=== PATIENT | female | born 1995 | race Caucasian/White ===

== ENCOUNTER 2018-05-07 04:02 | Inpatient (IN) | payer BC, OTHER ==
[2018-05-07] MEDS ORDERED: PROMETHAZINE 25 MG/ML VIAL IM PRN (04:21)
[2018-05-07] MEDS ORDERED: METHYLERGONOVINE 0.2MG/ML AMP IM PRN (04:21)
[2018-05-07] MEDS ORDERED: MIDAZOLAM HCL 2 MG/2 ML INJ IV PRN (04:21)
[2018-05-07] MEDS ORDERED: BUTORPHANOL 1 MG/ML INJ IV PRN (04:21)
[2018-05-07] MEDS ORDERED: MEPERIDINE HCL 25 MG/0.5 ML IV PRN (04:21)
[2018-05-07] MEDS ORDERED: CARBOPROST TROME 250 MCG/ML IM PRN (04:21)
[2018-05-07] MEDS ORDERED: Ringers Lactate 1,000 ML IV PRN (04:21)
[2018-05-07] MEDS ORDERED: Ringers Lactate 1,000 ML IV SCH (05:00)
[2018-05-07] MEDS ORDERED: OXYTOCIN/LR 20 UNIT/1,000 ML BAG IV SCH ×2 (05:00→12:00)
[2018-05-07 05:13] LABS: RPR Titer ND
[2018-05-07 05:17] LABS: Urine Appearance CLEAR; Urine Bilirubin NEGATIVE (NEG); Urine Blood NEGATIVE (NEG); Urine Color YELLOW; Urine Glucose NEGATIVE (NEG); Urine Protein NEGATIVE (NEG); Urine Specific Gravity 1.015 (1.005-1.030); Urine Urobilinogen 0.2 mg/dL (0.2-1.0)
[2018-05-07 05:17] LABS: Absolute Monocytes 1.1 K/uL (0.1-1.3); Absolute Neutrophil 7.9 K/uL (1.8-8.0); Basophils % 0.4 % (0-1.3); Eosinophils % 0.9 % (0-4.4); Hematocrit 42.7 % (36.0-45.0); MCH 27.9 pg (27.0-35.0); MCV 84.2 fL (80-100); MPV 10.2 fL (7.6-11.3); Monocytes % 8.7 % (3.3-12.3); RBC Red Blood Cell Count 5.07 M/uL (3.86-4.86)
[2018-05-07 05:19] LABS: Urine Microscopic Reflex NO UMIC
[2018-05-07 06:36] VITALS: BMI 33.1
[2018-05-07] MEDS ORDERED: FENTANYL/BUPIVACAINE/NS/PF 200 MCG/100 ML BAG EP PRN (07:54)
[2018-05-07] MEDS ORDERED: BUPIVACAINE 0.25% PF 30 ML VIAL IV ONE (07:54)
[2018-05-07] MEDS ORDERED: FENTANYL CITR 100 MCG/2 ML IV ONE (07:55)
[2018-05-07] MEDS ORDERED: ROPIVACAINE HCL 20 ML ONE (10:38)
--- NOTE | 2018-05-07 10:38 | PN ---
A 23-year-old female, now 1-1/2 to almost 2 cm, 60% effaced, vertex, well applied, -1 almost 0 statio n. Rupture of membranes, clear fluid. FHTs normal, reactive. Anticipate more rapid progress once s he gets to 4 to 5 cm. CARIN/SID Voice ID: [id number] Report ID: [id number]
--- NOTE | 2018-05-07 10:38 | PREOPHP ---
Date of Admission: 05/07/2018 A 23-year-old, 2, para 1, 39 weeks gestation. Rh positive. Immune to Rubella. Negative bet a strep screen. Cervix is possibly 1-1/2, but posterior. Baby is well applied at -1 to almost 0 sta tion. She is ila regularly, but has not really feeling them yet. FHTs are normal and reacti ve. Admission and labor talk given. The cervix is posterior, so it is uncomfortable for the patient to try the rupture of membranes. We will wait and see if cervix comes more anteriorly and then rupt ure of membranes. She knows if the membranes rupture spontaneously, she is to tell the nurses and we will check her at that point. Anticipate delivery sometime later today. CARIN/SID Voice ID: [id number]
[2018-05-07] MEDS ORDERED: ROPIVACAINE HCL 100 ML IV ONE (10:39)
[2018-05-07] MEDS ORDERED: LIDOCAINE 2% INJ, 20 mL 20 ML ONE (11:13)
[2018-05-07] MEDS ORDERED: BISACODYL 10 MG RECTAL SUPP RECT PRN (11:22)
[2018-05-07] MEDS ORDERED: Oxycodone HCl/Acetaminophen 1 TAB TAB PO PRN (11:22)
[2018-05-07] MEDS ORDERED: ACETAMINOPHEN 500 MG TAB PO PRN (11:22)
[2018-05-07] MEDS ORDERED: DOCUSATE NA/SENNA CONC 1 TAB PO PRN (11:22)
[2018-05-07] MEDS ORDERED: DIPHENHYDRAMINE 25 MG TAB/CAP PO PRN (11:22)
[2018-05-07] MEDS: IBUPROFEN 200 MG TAB PO PRN (16:10)
--- NOTE | 2018-05-07 21:29 | OP ---
Surgeon: Heber Smith MD Description Of Procedure: A 23-year-old, 2, para 1, 39 weeks gestation. Stadol IV, Phenerga n IM initially. Requested epidural, but epidural was done late in the second stage, it really was in effective. Spontaneous vaginal delivery. After 10 minutes second stage, 6 pounds 5 ounce male, Apga rs 9 and 9. Small first-degree laceration repaired with 2-0 chromic and local infiltration. Four st itches. Schultze delivery of the placenta, which was inspected and noted to be heavily calcified, bu t otherwise normal. Less than 350 cc blood loss. Rh positive, immune to Rubella. Negative beta str ep screen. Tolerated all procedures well. Final Diagnoses: Term intrauterine and vaginal delivery, epidural anesthesia-ineffective. CARIN/SID Voice ID: [id number] Report ID: [id number]
[2018-05-07 22:19] LABS: RPR (Rapid Plasma Reagin) NON-REACT (NON-REACT)
[2018-05-08] MEDS: Oxycodone HCl/Acetaminophen 1 TAB TAB PO PRN ×3 (03:50→13:30)
[2018-05-08 09:15] VITALS: TEMP 97
[2018-05-08] MEDS: IBUPROFEN 200 MG TAB PO PRN (13:30)
[2018-05-08 14:28] VITALS: BP 161/82
--- NOTE | 2018-05-09 05:36 | DS ---
Date of Discharge: 05/08/2018 Hospital Course: A 23-year-old, 2, para 1, 39 weeks, delivered a 6-pound 5-ounce male infant , 10 minutes second stage, Apgars 9 and 9, first-degree laceration requiring 4 stitches of 2-0 chromi c under local infiltration, had attempted epidural, but it was too late in the labor and it was not e ffective. Schultze delivery of the placenta, which was inspected and noted to be heavily calcified, but otherwise normal. A 350 cc or less blood loss. Beta strep negative, Rh positive, immune to Rube lla. afebrile, ambulating and voiding. Lochia is normal. Will be dismissed later today. To report back to my office in 6 weeks for followup, to report any temperature elevation of 100 deg panda or greater, severe pain, heavy bleeding, or any other type of abnormalities. Dismissed with tra madol for analgesia, although she may elect to take Motrin instead. Has been offered Tdap during the . Again, offered Tdap administration. Final Diagnoses: Term intrauterine at 39 weeks, vaginal delivery. Tdap offered. CARIN/SID Voice ID: [id number] Report ID: [id number]
[2018-05-10 03:05] LABS: HBsAG Nonreactive (Nonreactive)
== END 2018-05-08 15:10 | disposition home or self-care (01) | DRG 775 ==
LOC: 2ND-WC 04:02 → EDSTATUS 11:31
PROVIDERS: ADMIT Specialist; ATTEND Specialist
PROC: 10E0XZZ Delivery of Products of Conception, External Approach (ICD-10-PCS; principal; 2018-05-07)
PROC: 0HQ9XZZ Repair Perineum Skin, External Approach (ICD-10-PCS; 2018-05-07)
PROC: 10907ZC Drainage of Amniotic Fluid, Therapeutic from Products of Conception, Via Natural or Artificial Opening (ICD-10-PCS; 2018-05-07)
DX: O70.0 First degree perineal laceration during delivery (principal); Z3A.39 39 weeks gestation of pregnancy; Z37.0 Single live birth
CPT/HCPCS: 36415; 81003; 85025; 86592; 86850; 86900; 86901; 87340; J0595; J2550; J2590; J2795; J3010

== ENCOUNTER 2020-02-27 07:25 | Day surgery (SDC) | payer BC ==
[2020-02-27] MEDS ORDERED: Ringers Lactate 1,000 ML IV ONE (07:59)
[2020-02-27 08:03] LABS: Specific Gravity 1.015 (1.005-1.030)
[2020-02-27 08:04] LABS: Absolute Lymphocytes (CBC) 2.1 K/uL (0.7-4.9); Basophils % 0.4 % (0-1.3); Lymphocytes % 15.9 % (15.3-44.8); MPV 8.8 fL (7.6-11.3); RBC Red Blood Cell Count 4.79 M/uL (3.86-4.86)
[2020-02-27] MEDS: CIPROFLOXACIN 400mg IV 400 MG/200 ML BAG IV ONE ×2 (08:11→09:30)
[2020-02-27 08:15] LABS: BUN Blood Urea Nitrogen 9 mg/dL (7-18); Bicarbonate 25 mmol/L (21-32); Glucose Level 95 mg/dL (74-106); Sodium Level 139 mmol/L (136-145)
[2020-02-27] MEDS ORDERED: dexAMETHasone 10 MG/ML VIAL ONE (08:21)
[2020-02-27] MEDS ORDERED: ONDANSETRON 4 MG/2 ML VIAL ONE (08:21)
[2020-02-27] MEDS ORDERED: propofoL 200 MG/20 ML VIAL IV ONE (08:21)
[2020-02-27] MEDS ORDERED: FENTANYL CITR 100 MCG/2 ML ONE (08:21)
[2020-02-27] MEDS ORDERED: LIDOCAINE 2% MPF 5 ML VIAL ONE (08:21)
[2020-02-27] MEDS ORDERED: MIDAZOLAM HCL 2 MG/2 ML INJ ONE (08:21)
[2020-02-27] MEDS ORDERED: KETOROLAC 30 MG/ML INJ ONE (10:12)
--- NOTE | 2020-02-27 10:43 | P.BOP ---
Preoperative diagnosis: left breast mastitis, Large complex abscess Postoperative diagnosis: same Primary procedure: 1. Incision and drainage of left breast Large complex abscess [id number] Secondary procedure: 2. Left breast biospy Specimen: bx culture Findings: LArge complex abscess, large amt of pus Anesthesia: General Drain(s): Other (kerlix roll) Transferred to: Recovery Room Condition: Good
[2020-02-27 11:10] VITALS: TEMP 98.2; O2SAT 100
[2020-02-27] MEDS ORDERED: HYDROCODONE/APAP 5/325 MG TAB ONE (11:17)
[2020-02-27 12:05] VITALS: BP 128/64
--- NOTE | 2020-02-27 12:21 | DS ---
Date of Discharge: 02/27/2020 Diagnosis: Left breast mastitis, large complex abscess, mastodynia. Procedures: Incision and drainage of left breast large complex abscess with left breast biopsy. Disposition: Home. Activity: As tolerated. No heavy lifting. Followup: Follow up in my office in 1 week. Call for appointment at [phone]. We are going to add Cipro 500 mg to her antibiotic regimen and Vicodin 5/325 p.r.n. pain and then delmer ine with no refill. Followup: Follow up in my office in 1 week. JULISA/SID Voice ID: [id number] Report ID: [id number]
--- NOTE | 2020-02-27 12:21 | OP ---
Date of Procedure: 02/27/2020 Surgeon: Miguel Hidalgo MD Preoperative Diagnoses: Left breast mastitis, tenderness, erythema, large complex abscess. Postoperative Diagnoses: Left breast mastitis, tenderness, erythema, large complex abscess. Procedures: 1.Incision and drainage of left breast large complex abscess, 10 x 9 x 9 cm. 2.Left breast biopsy. Specimen: Biopsy and culture of the pus. Findings: Large complex abscess with large amount of pus present. Anesthesia: General plus local. Packing: Kerlix roll, wet-to-dry with saline. Indications: This is a case of a 24-year-old patient, came to my office few hours ago with enlargeme nt of the left breast with severe erythema. Patient has been on p.o. antibiotics, not improved. It is very tender, so she was booked emergent to have incision and drainage of left breast complex absce ss with left breast biopsy to rule out inflammatory breast cancer. Patient understood the benefits, alternatives and risks include but not limited to infection, bleeding, damage to adjacent structures, anesthesia complication, recurrence, CO, and even . She also understands this may not relieve any symptoms. She might need more than one surgical intervention. She understands and her u nderstand she will need packing, she has the option of the home health versus the . Since the done this before he claims he can do it and he was fully explained. We understand our ciera n is in an emergency right now with coronavirus exposure, the possible exposure, said she understands that risk too but at same time it is too big and too tender to be done in any other setting. She un derstood, signed a consent. Description Of Procedure: Patient was brought to the operating room, placed in supine position. Ane sthesia was done without complication. The left breast was prepped and draped in sterile fashion. A time-out was called. Local anesthesia was applied, followed by sharp incision of the skin in the pe riareolar region. Immediately, we have a large amount of pus coming from the area. Suction was done . Loculations were exposed. Area was profusely irrigated leaving a large cavity about 10 x 9 x 9 cm . Hemostasis was obtained of that area. Local anesthesia was applied and then breast biopsy was don e under inflammatory breast tissue. This was sent to the pathologist. After that, we packed the are a with large Kerlix roll and with saline and then sterile dressings on top. Patient tolerated the pr ocedure well. Patient was sent to Recovery in stable condition. JULISA/SID Voice ID: [id number] Report ID: [id number]
== END 2020-02-27 12:00 | disposition home or self-care (01) ==
LOC: OR 07:25
PROVIDERS: ATTEND Surgery
PROC: 0H9U0ZZ Drainage of Left Breast, Open Approach (ICD-10-PCS; principal; 2020-02-27 09:00)
DX: N61.1 Abscess of the breast and nipple (principal); N64.4 Mastodynia; K21.9 Gastro-esophageal reflux disease without esophagitis; Z88.2 Allergy status to sulfonamides; Z82.49 Family history of ischemic heart disease and other diseases of the circulatory system
CPT/HCPCS: 87070; 85025; 80048; 36415; 87205; 81025; 88305; 87075; 87077; 87186; 10061; J2704; J2250; J3010; J1100; J7120; J2405; J0744

== ENCOUNTER 2022-10-31 18:28 | Emergency (ER) | payer BC, SELFPAY ==
[2022-10-31] MEDS ORDERED: TETANUS & DIPHTHERIA TOX,ADULT 0.5 ML VIAL ONE ×2 (20:38→20:43)
--- NOTE | 2022-10-31 22:25 | ER ---
Nurse's Notes [facility] Name: Avi Scanlon Age: 27 yrs Sex: Female : 1995 Arrival Date: 10/31/2022 Time: 18:30 Bed 16 Private MD: Diagnosis: Contusion of left thigh, initial encounter Presentation: 10/31 20:10 Chief complaint: Patient states: I fell through my attic. I didn't hit the ground but I kd3 have a nasty scrape on the inside of my left thigh. Coronavirus screen: Vaccine status: Patient reports being unvaccinated. Ebola Screen: No symptoms or risks identified at this time. Initial Sepsis Screen: Does the patient meet any 2 criteria? No. Patient's initial sepsis screen is negative. Does the patient have a suspected source of infection? No. Patient's initial sepsis screen is negative. Risk Assessment: Do you want to hurt yourself or someone else? Patient reports no desire to harm self or others. Onset of symptoms was October 31, 2022. 20:10 Method Of Arrival: Ambulatory kd3 20:10 Acuity: JUAN 4 kd3 Triage Assessment: 20:13 General: Appears in no apparent distress. Behavior is calm, cooperative. Pain: kd3 Complains of pain in medial aspect of left thigh. Neuro: Level of Consciousness is awake, alert, obeys commands, Oriented to person, place, time, situation. Respiratory: Airway is patent Trachea midline Respiratory effort is even, unlabored, Respiratory pattern is regular, symmetrical. Injury Description: Abrasion sustained to medial aspect of left thigh Bruise sustained to medial aspect of left thigh. 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 - Social history:: Smoking status: Reported history of juuling and/or vaping. Screenin:40 Abuse screen: Denies threats or abuse. Nutritional screening: No deficits noted. em6 Tuberculosis screening: No symptoms or risk factors identified. Fall Risk Total Dooley Fall Scale indicates No Risk (0-24 pts). Assessment: 20:40 General: Appears in no apparent distress. Behavior is cooperative. Pain: Complains of em6 pain in left leg and medial aspect of left thigh Pain does not radiate. Pain currently is 4 out of 10 on a pain scale. Neuro: Wharton Agitation-Sedation Scale (RASS): 0 - Alert and Calm. Cardiovascular: Patient's skin is warm and dry. Respiratory: Airway is patent Respiratory effort is even, unlabored, Respiratory pattern is regular, symmetrical. GI: No signs and/or symptoms were reported involving the gastrointestinal system. : No signs and/or symptoms were reported regarding the genitourinary system. EENT: No signs and/or symptoms were reported regarding the EENT system. Derm: No signs and/or symptoms reported regarding the dermatologic system. Musculoskeletal: Circulation, motion, and sensation intact. 20:40 Injury Description: abrasion noted to the inner left upper leg. redness and swelling. em6 no bleeding noted. 21:40 Reassessment: Patient appears in no apparent distress at this time. No changes from em6 previously documented assessment. Patient and/or family updated on plan of care and expected duration. Pain level reassessed. Patient is alert, oriented x 3, equal unlabored respirations, skin warm/dry/pink. Vital Signs: 20:10 BP 123 / 88; Pulse 85; Resp 17; Temp 98.1(TE); Pulse Ox 100% on R/A; Weight 72.57 kg; kd3 Height 5 ft. 3 in. (160.02 cm); Pain 4/10; 21:00 BP 123 / 76; Pulse 80; Resp 18; Pulse Ox 100% on R/A; em6 22:00 BP 126 / 74; Pulse 84; Resp 18; Pulse Ox 100% on R/A; em6 20:10 Body Mass Index 28.34 (72.57 kg, 160.02 cm) kd3 ED Course: 18:30 Patient arrived in ED. am2 18:49 Eric Pope PA is PHCP. cp 18:49 Russell Meyers MD is Attending Physician. cp 20:13 Triage completed. kd3 20:13 Arm band placed on right wrist. kd3 20:32 Verónica Hidalgo, DARA is Primary Nurse. em6 20:40 Bed in low position. Call light in reach. Side rails up X 1. Pulse ox on. NIBP on. Warm em6 blanket given. 22:27 XRAY Femur LEFT In Process Unspecified. EDMS 22:35 No provider procedures requiring assistance completed. Patient did not have IV access em6 during this emergency room visit. Administered Medications: 20:41 Drug: Tetanus-Diphtheria Toxoid Adult 0.5 ml {Air Vice Marshal: [employer]. Exp: em6 04/29/2024. Lot #: [id number]. } Route: IM; Site: left deltoid; 21:20 Follow up: Response: No adverse reaction em6 Medication: 20:42 Vaccine Information Statement (VIS) provided today. Questions and/or concerns em6 addressed. VIS edition date: July 02, 2021. Outcome: 22:24 Discharge ordered by MD. cp 22:35 Discharged to home ambulatory, with family. em6 22:35 Condition: stable 22:35 Discharge instructions given to patient, family, Instructed on discharge instructions, follow up and referral plans. medication usage, wound care, Demonstrated understanding of instructions, follow-up care, medications, wound care, Prescriptions given X 1. 22:36 Patient left the ED. em6 Signatures: Dispatcher [employer] EDMS Eric Pope PA PA cp Moreno, Amanda am2 Sheryl Good, RN RN kd3 Verónica Hidalgo RN RN em6 Corrections: (The following items were deleted from the chart) 20:13 20:13 Allergies: No Known Allergies; kd3 kd3 22:35 20:40 Injury Description: Laceration sustained to left leg and medial aspect of left em6 thigh is clean, not bleeding, em6
--- NOTE | 2022-10-31 22:25 | EDPHYS ---
Physician Documentation [facility] Name: Avi Scanlon Age: 27 yrs Sex: Female : 1995 Arrival Date: 10/31/2022 Time: 18:30 Bed 16 Private MD: ED Physician Russell Meyers HPI: 10/31 20:45 This 27 yrs old Female presents to ER via Ambulatory with complaints of Fall Injury, cp Leg Pain. 20:45 The patient presents with an abrasion, an injury, swelling, tenderness. cp 20:45 The complaints affect the medial aspect of left thigh. Context: resulted from fall cp through attic roof. Onset: The symptoms/episode began/occurred just prior to arrival. Associated signs and symptoms: The patient has no apparent associated signs or symptoms. Treatment prior to arrival includes: no previous treatment. 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 - Social history:: Smoking status: Reported history of juuling and/or vaping. ROS: 20:50 MS/extremity: Positive for abrasion, ecchymosis, swelling, tenderness, of the medial cp aspect of left thigh, injury. 20:50 Neck: Negative for pain with movement, pain at rest. cp 20:50 Cardiovascular: Negative for chest pain. 20:50 Abdomen/GI: Negative for abdominal pain. 20:50 Back: Negative for pain at rest, pain with movement. 20:50 Neuro: Negative for numbness, weakness. 20:50 All other systems are negative. Exam: 21:00 Constitutional: The patient appears in no acute distress, alert, awake, non-toxic, well cp developed, well nourished. 21:00 Head/Face: Normocephalic, atraumatic. cp 21:00 Neck: C-spine: vertebral tenderness, is not appreciated, crepitus, is not appreciated, ROM/movement: is normal, is supple, without pain, no range of motions limitations. 21:00 Chest/axilla: Inspection: normal. 21:00 Cardiovascular: Rate: normal. 21:00 Respiratory: the patient does not display signs of respiratory distress, Respirations: normal, no use of accessory muscles, no retractions. 21:00 Abdomen/GI: Inspection: abdomen appears normal, Palpation: abdomen is soft and non-tender, in all quadrants. 21:00 Back: pain, is absent, ROM is normal. 21:00 Musculoskeletal/extremity: Extremities: grossly normal except: noted in the medial aspect of left thigh: abrasion, ecchymosis, swelling, tenderness, ROM: full active range of motion, in the left hip and left knee. 21:00 Neuro: Orientation: to person, place \T\ time. Mentation: is normal. Vital Signs: 20:10 BP 123 / 88; Pulse 85; Resp 17; Temp 98.1(TE); Pulse Ox 100% on R/A; Weight 72.57 kg; kd3 Height 5 ft. 3 in. (160.02 cm); Pain 4/10; 21:00 BP 123 / 76; Pulse 80; Resp 18; Pulse Ox 100% on R/A; em6 22:00 BP 126 / 74; Pulse 84; Resp 18; Pulse Ox 100% on R/A; em6 20:10 Body Mass Index 28.34 (72.57 kg, 160.02 cm) kd3 MDM: 20:16 Patient medically screened. cp 21:00 Differential diagnosis: dislocation, closed fracture, contusion, abrasion, hematoma. cp 22:24 Data reviewed: vital signs, nurses notes, radiologic studies, plain films. cp 22:24 Test interpretation: by ED physician or midlevel provider: plain radiologic studies. cp Counseling: I had a detailed discussion with the patient and/or guardian regarding: the historical points, exam findings, and any diagnostic results supporting the discharge/admit diagnosis, radiology results, to return to the emergency department if symptoms worsen or persist or if there are any questions or concerns that arise at home. ED course: VSS. Xrays reviewed and negative for fracture. Discussed wound care and return to ED pain worsens. 10/31 20:23 Order name: XRAY Femur LEFT cp Administered Medications: 20:41 Drug: Tetanus-Diphtheria Toxoid Adult 0.5 ml {Patient Safety Coordinator: [employer]. Exp: em6 04/29/2024. Lot #: [id number]. } Route: IM; Site: left deltoid; 21:20 Follow up: Response: No adverse reaction em6 Disposition: 11/01 10:53 Co-signature as Attending Physician, Russell Meyers MD I agree with the assessment and kdr plan of care. Disposition Summary: 10/31/22 22:24 Discharge Ordered Location: Home cp Problem: new cp Symptoms: have improved cp Condition: Stable cp Diagnosis - Contusion of left thigh, initial encounter cp Followup: cp - With: Private Physician - When: 2 - 3 days - Reason: Worsening of condition Discharge Instructions: - Discharge Summary Sheet cp - Abrasion cp - Contusion cp - Hematoma cp Forms: - Medication Reconciliation Form cp - Thank You Letter cp - Antibiotic Education cp - Prescription Opioid Use cp Prescriptions: - Ibuprofen 800 mg Oral Tablet - take 1 tablet by ORAL route every 8 hours As needed take with food; 30 tablet; cp Refills: 0, Product Selection Permitted Signatures: Dispatcher [employer] EDMS Russell Meyers MD MD kdr Page, Corey, PA PA cp Sheryl Good RN RN kd3 Verónica Hidalgo RN RN em6 Corrections: (The following items were deleted from the chart) 10/31 20:13 20:13 Allergies: No Known Allergies; kd3 kd3 22:21 21:14 Femur Left ordered. EDPA EDMS 11/01 19:43 19:41 MS/extremity: Positive for abrasion, ecchymosis, swelling, tenderness, of the cp medial aspect of left thigh, injury, cp
--- NOTE | 2022-10-31 22:49 | RAD REPORT ---
EXAM DESCRIPTION: RAD - Femur Left - 10/31/2022 10:25 pm CLINICAL HISTORY: Left leg pain FINDINGS: No fracture seen
[2022-11-01 01:54] VITALS: TEMP 98.1; O2SAT 100
[2022-11-01 02:02] VITALS: BP 126/74
== END 2022-10-31 22:36 | disposition home or self-care (01) ==
LOC: ER 18:28
DX: S70.12XA Contusion of left thigh, initial encounter (principal); Z23 Encounter for immunization
CPT/HCPCS: 90471; 90714; 99284

== ENCOUNTER 2024-12-09 07:59 | Emergency (ER) | payer SELFPAY ==
[2024-12-09] MEDS ORDERED: IPRATROPIUM BROM 0.5MG/2.5ML ONE (08:23)
[2024-12-09] MEDS ORDERED: ALBUTEROL 2.5 MG/3 ML NEB SOL ONE (08:23)
[2024-12-09 09:10] LABS: SARS-CoV-2 Antigen CONTROL BLUE LINE VIS/BG OK; SARS-CoV-2 Antigen Rapid Res Negative (Negative)
--- NOTE | 2024-12-09 10:38 | RAD REPORT ---
Procedure: Chest Pa And Lat (2 Views) HISTORY: Cough COMPARISON: none FINDINGS: Small calcified hilar lymph nodes. 7 mm nodule anterior upper lobe seen on the lateral view. It is equivocally calcified. The right lung appears clear of acute infiltrate. No significant pleural effusion noted. The heart is normal size. IMPRESSION: 7 mm nodule upper lobe seen on the lateral view may represent a granuloma. It is recommended that pat ient have a follow-up chest x-ray in 3 months for reevaluation
--- NOTE | 2024-12-09 10:43 | EDPHYS ---
Physician Documentation [facility] Name: Avi Scanlon Age: 29 yrs Sex: Female : 1995 Arrival Date: 12/09/2024 Time: 07:59 Bed 8 Private MD: ED Physician Luis Son HPI: 12/09 08:20 This 29 yrs old Female presents to ER via Ambulatory with complaints of Sore Throat, sb4 Chest Pressure, Chest Congestion. 08:20 flu like symptoms x 1 week- cough, congestion, sore throat. this morning felt chest sb4 tightness and voice was very hoarse. no fever, nausea, vomiting, or diarrhea. cough has been productive. denies medical history . 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 Flu vaccine is not up to date. - Infectious Disease History:: Denies. - Social history:: Smoking status: Reported history of juuling and/or vaping. ROS: 08:20 Constitutional: Negative for fever, chills, and weight loss, sb4 08:20 ENT: Positive for hoarseness, sore throat, 08:20 Cardiovascular: Positive for chest tightness, 08:20 Respiratory: Positive for cough, "sounds productive", 08:20 All other systems are negative, Exam: 08:20 Constitutional: This is a well developed, well nourished patient who is awake, alert, sb4 and in no acute distress. Head/Face: Normocephalic, atraumatic. Eyes: Extra-ocular motions intact. Periorbital areas with no swelling, redness, or edema. ENT: Mucous membranes moist. Cardiovascular: Regular rate and rhythm with a normal S1 and S2. Respiratory: No increased work of breathing, no retractions or nasal flaring. Skin: Warm, dry with normal turgor. Normal color with no rashes, no lesions, and no evidence of cellulitis. 08:22 ENT: TM's: are normal, Posterior pharynx: is normal, sb4 Vital Signs: 08:13 BP 139 / 96; Pulse 92; Resp 17; Temp 98.6(O); Pulse Ox 99% on R/A; Weight 72.57 kg; ap3 Height 5 ft. 3 in. ; Pain 0/10; 09:22 BP 137 / 84; Pulse 91; Resp 18 S; Pulse Ox 99% on R/A; kc6 10:19 BP 135 / 92; Pulse 89; Resp 16 S; Pulse Ox 100% on R/A; kc6 08:13 Body Mass Index 28.34 (72.57 kg, 160.02 cm) ap3 08:13 Pain Scale: Adult ap3 MDM: 08:08 Medical Screening Exam initiated sb4 08:49 Differential diagnosis: group A strep tonsillitis, influenza, laryngitis, pharyngitis, sb4 tonsillitis, upper respiratory infection, viral syndrome. 09:34 Independent interpretation of the following test(s) in the Emergency Department X-Ray: sb4 My interpretation is my interpretation of the chest xray images are no acute consolidation or evidence of pneumonia. 09:38 Awaiting: X-ray results. sb4 10:41 Data reviewed: vital signs, nurses notes, lab test result(s), radiologic studies, and sb4 as a result, I will discharge patient. Counseling: I had a detailed discussion with the patient and/or guardian regarding the historical points, exam findings, and any diagnostic results supporting the discharge/admit diagnosis, lab results, radiology results, the need for outpatient follow up, for definitive care, to return to the emergency department if symptoms worsen or persist or if there are any questions or concerns that arise at home. Special discussion: I discussed with the patient the need to follow-up with the PCP/specialist for the noted incidental finding on X-ray/CT scanning. 12/09 08:12 Order name: SARS RAPID; Complete Time: 09:15 sb4 12/09 08:12 Order name: Flu; Complete Time: 09:15 sb4 12/09 08:12 Order name: Strep sb4 12/09 09:11 Order name: Throat Culture EDMS 12/09 08:12 Order name: Chest Pa And Lat (2 Views) XRAY; Complete Time: 10:38 sb4 Administered Medications: 08:26 Drug: DuoNeb Nebulize (3:1) (2.5 mg - 0.5 mg) 3 ml Nebulizer once Route: Nebulizer; kc6 08:55 Follow up: Response: No adverse reaction kc6 Disposition: 09:57 I was immediately available on-site in the Emergency Department for consultation in the ms3 care of the patient. Disposition Summary: 12/09/24 10:42 Discharge Ordered Notes: Location: Home sb4 Problem: new sb4 Symptoms: have improved sb4 Condition: Stable sb4 Diagnosis - Acute upper respiratory infection, unspecified sb4 - Solitary pulmonary nodule sb4 - Acute laryngitis sb4 Followup: sb4 - With: Emergency Department - When: As needed - Reason: Trouble breathing, Worsening of condition Discharge Instructions: - Discharge Summary Sheet sb4 - Laryngitis sb4 - Upper Respiratory Infection, Adult, [id number] sb4 - Pulmonary Nodule sb4 Forms: - Work release form sb4 - Antibiotic Education sb4 - Patient Portal Instructions sb4 - Leadership Thank You Letter sb4 Prescriptions: - Amoxicillin 875 mg Oral Tablet - take 1 tablet ORAL route every 12 hours for 10 days; 20 tablet; Refills: 0, sb4 Product Selection Permitted - Prednisone 20 mg Oral Tablet - take 1 tablet ORAL route every 12 hours for 5 days; 10 tablet; Refills: 0, sb4 Product Selection Permitted Signatures: Dispatcher [employer] EDMI Sweetie Guadalupe RN RN chanelle3 Luis Son, DO DO ms3 Hermelinda Park RN RN kc6 Sybil Garber, PA-C PA-C sb4 Corrections: (The following items were deleted from the chart) 08:13 08:12 Chest Pa And Lat (2 Views)+[email or web address] ordered. [facility] EDMI 09:18 08:20 flu like symptoms x 1 week- cough, congestion, sore throat. this morning felt sb4 chest tightness. no fever, nausea, vomiting, or diarrhea. cough has been productive. denies medical history . sb4 09:18 08:20 ENT: Positive for sore throat, sb4 sb4
--- NOTE | 2024-12-09 10:43 | ER ---
Nurse's Notes [facility] Name: Avi Scanlon Age: 29 yrs Sex: Female : 1995 Arrival Date: 12/09/2024 Time: 07:59 Bed 8 Private MD: Diagnosis: Acute upper respiratory infection, unspecified;Solitary pulmonary nodule;Acute laryngitis Presentation: 12/09 08:13 Chief complaint: Patient states: she has been having cough, congestion and sore throat ap3 for weeks that is not improving. patient reports that her voice does not sound like her baseline at this time. Coronavirus screen: Client presents with at least one sign or symptom that may indicate coronavirus-19. Ebola Screen: No symptoms or risks identified at this time. Initial Sepsis Screen: Does the patient meet any 2 criteria? HR > 90 bpm. Does the patient have a suspected source of infection? No. Patient's initial sepsis screen is negative. Risk Assessment: Do you want to hurt yourself or someone else? Patient reports no desire to harm self or others. Onset of symptoms is unknown. 08:13 Method Of Arrival: Ambulatory ap3 08:13 Acuity: JUAN 4 ap3 Triage Assessment: 08:14 General: Appears in no apparent distress. Behavior is calm, cooperative, appropriate ap3 for age. Pain: Complains of pain in chest Quality of pain is described as heavy. EENT: Reports nasal congestion. Neuro: Level of Consciousness is awake, alert, obeys commands, Oriented to person, place, time, situation, Appropriate for age Gait is steady, Speech is normal. Cardiovascular: Patient's skin is warm and dry. Respiratory: Reports cough that is productive, Airway is patent Respiratory effort is even, unlabored, Respiratory pattern is regular, symmetrical. 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 Flu vaccine is not up to date. - Infectious Disease History:: Denies. - Social history:: Smoking status: Reported history of juuling and/or vaping. Screenin:15 [facility] ED Fall Risk Assessment (Adult) History of falling in the last 3 months, ap3 including since admission No falls in past 3 months (0 pts) Confusion or Disorientation No (0 pts) Intoxicated or Sedated No (0 pts) Impaired Gait No (0 pts) Mobility Assist Device Used No (0 pt) Altered Elimination No (0 pt) Score/Fall Risk Level 0 - 2 = Low Risk Oriented to surroundings, Maintained a safe environment, Educated pt \T\ family on fall prevention, incl call for assistance when getting out of bed, Assessed \T\ reinforced patient's understanding of fall precautions, Hourly rounding (assess needs \T\ fall precautionary measures) done, Used ambulatory aids as needed (educated on \T\ assisted with), Used gait belt as appropriate. Abuse screen: Denies threats or abuse. Nutritional screening: No deficits noted. Tuberculosis screening: No symptoms or risk factors identified. Assessment: 08:26 General: Appears in no apparent distress. comfortable, well groomed, well developed, kc6 Behavior is calm, cooperative, appropriate for age. Neuro: Level of Consciousness is awake, alert, obeys commands, Oriented to person, place, time, situation, Appropriate for age. Cardiovascular: Capillary refill < 3 seconds. Respiratory: Reports cough that is dry, persistent Airway is patent Trachea midline Respiratory effort is even, unlabored, Respiratory pattern is regular, symmetrical. GI: No signs and/or symptoms were reported involving the gastrointestinal system. : No signs and/or symptoms were reported regarding the genitourinary system. EENT: Throat is pink bilaterally with gag reflex present, Reports nasal congestion pain when swallowing. Derm: No signs and/or symptoms reported regarding the dermatologic system. Skin is intact, is healthy with good turgor, Skin is pink, warm \T\ dry. Musculoskeletal: No signs and/or symptoms reported regarding the musculoskeletal system. Circulation, motion, and sensation intact. Range of motion: intact in all extremities. 09:22 Reassessment: Patient appears in no apparent distress at this time. No changes from kc6 previously documented assessment. Patient and/or family updated on plan of care and expected duration. Pain level reassessed. Patient is alert, oriented x 3, equal unlabored respirations, skin warm/dry/pink. 10:19 Reassessment: Patient appears in no apparent distress at this time. No changes from kc6 previously documented assessment. Patient and/or family updated on plan of care and expected duration. Pain level reassessed. Patient is alert, oriented x 3, equal unlabored respirations, skin warm/dry/pink. 11:00 Respiratory: Breath sounds are clear. ap3 Vital Signs: 08:13 BP 139 / 96; Pulse 92; Resp 17; Temp 98.6(O); Pulse Ox 99% on R/A; Weight 72.57 kg; ap3 Height 5 ft. 3 in. ; Pain 0/10; 09:22 BP 137 / 84; Pulse 91; Resp 18 S; Pulse Ox 99% on R/A; kc6 10:19 BP 135 / 92; Pulse 89; Resp 16 S; Pulse Ox 100% on R/A; kc6 08:13 Body Mass Index 28.34 (72.57 kg, 160.02 cm) ap3 08:13 Pain Scale: Adult ap3 ED Course: 08:03 Patient arrived in ED. sj2 08:07 Sybil Garber PA-C is PHCP. sb4 08:07 Luis Son DO is Attending Physician. sb4 08:14 Triage completed. ap3 08:15 Arm band placed on right wrist. ap3 08:17 Radiology exam delayed due to test not completed at this time. md2 08:21 COVID swab sent to lab. Flu and/or RSV swab sent to lab. Strep swab sent to lab. kc6 Patient maintains SpO2 saturation greater than 95% on room air. 08:22 Patient has correct armband on for positive identification. Bed in low position. Call kc6 light in reach. Side rails up X 1. Pulse ox on. NIBP on. Door closed. Noise minimized. Lights dimmed. Pillow given. 08:26 Initial Neb Treatment Given as ordered Patient was instructed and evaluated on kc6 procedure Patient tolerated procedure well without adverse effect. 08:27 Hermelinda Park, DARA is Primary Nurse. kc6 09:41 Chest Pa And Lat (2 Views) XRAY In Process Unspecified. EDMS 10:59 Provided Education on: discharge instructions. ap3 10:59 No provider procedures requiring assistance completed. Patient did not have IV access ap3 during this emergency room visit. Administered Medications: 08:26 Drug: DuoNeb Nebulize (3:1) (2.5 mg - 0.5 mg) 3 ml Nebulizer once Route: Nebulizer; kc6 08:55 Follow up: Response: No adverse reaction kc6 Medication: 08:47 VIS not applicable for this client. ap3 Outcome: 10:42 Discharge ordered by . sb4 10:59 Discharged to home ambulatory, ap3 10:59 Condition: good 10:59 Discharge instructions given to patient, Instructed on discharge instructions, follow up and referral plans. medication usage, Demonstrated understanding of instructions, follow-up care, medications, Prescriptions given X 2, 11:00 Patient left the ED. ap3 Signatures: Dispatcher [employer] EDMS Sweetie Guadalupe RN RN ap3 Hermelinda Park RN RN kc6 Sybil Garber PA-Za PA-Maranda Chacon md2 Cristóbal Donaldson
[2024-12-10 16:43] VITALS: BP 135/92; TEMP 98.6; O2SAT 100
== END 2024-12-09 11:00 | disposition home or self-care (01) ==
LOC: ER 07:59
DX: J06.9 Acute upper respiratory infection, unspecified (principal); J04.0 Acute laryngitis; R91.1 Solitary pulmonary nodule; Z11.52 Encounter for screening for COVID-19
CPT/HCPCS: 36415; 71046; 87070; 87081; 87804; 87811; 94640; 99284; J7613; J7644

== ENCOUNTER 2024-12-18 09:06 | Emergency (ER) | payer SELFPAY ==
[2024-12-18 09:35] LABS: Specific Gravity 1.012 (1.005-1.030)
[2024-12-18] MEDS ORDERED: NA CHLORIDE 0.9% 2,000 ML ONE (09:36)
[2024-12-18 09:37] LABS: Specific Gravity 1.012 (1.005-1.030); Sqamous Epithelial <5 /HPF (None Seen); Urine Bacteria None Seen /HPF (<20); Urine Bilirubin NEGATIVE (Negative); Urine Blood Negative (Negative); Urine Clarity Clear (Clear); Urine Color Colorless (Yellow); Urine Crystals Unidentified Few /HPF (None Seen); Urine Culture Reflex Order NOT NEEDED; Urine Glucose NEGATIVE (Negative); Urine Ketones NEGATIVE (Negative); Urine Microscopic Reflex YN ORDER UMIC; Urine Nitrite NEGATIVE (Negative); Urine Protein NEGATIVE (Negative); Urine RBC <5 /HPF (None Seen); Urine Urobilinogen Normal (Normal); Urine WBC <5 /HPF (<5); Urine Yeast (Budding) Trace /HPF (None Seen); Urine pH 6.5 (5.0-7.0)
[2024-12-18 09:56] LABS: Barbiturates NEGATIVE (NEGATIVE); Benzodiazepines NEGATIVE (NEGATIVE); Cocaine NEGATIVE (NEGATIVE); METHAMPHETAM POSITIVE (NEGATIVE); Methadone NEGATIVE (NEGATIVE); Opiates NEGATIVE (NEGATIVE); Phencyclidine POSITIVE (NEGATIVE); THC Cannibis NEGATIVE (NEGATIVE)
[2024-12-18 10:07] LABS: Arterial Blood Carboxyhemoglob 0.5 % (0-1.5); Blood Gas Oxyhemoglobin 94.6 % (94-97); Blood O2 Saturation 96.8 % (92-98.5)
[2024-12-18 10:08] LABS: Blood Gas THB 15.9 g/dl (12-18)
[2024-12-18 10:16] LABS: Absolute Basophils 0.1 K/uL (0-0.5); Absolute Eosinophils 0.1 K/uL (0-0.5); Absolute Lymphocytes (CBC) 1.7 K/uL (0.7-4.9); Absolute Monocytes 0.4 K/uL (0.1-1.3); Absolute Neutrophil 6.6 K/uL (1.8-8.0); Basophils % 0.6 % (0-1.3); Eosinophils % 0.7 % (0-4.4); Hematocrit 43.7 % (36.0-45.0); Lymphocytes % 19.1 % (15.3-44.8); MCH 31.4 pg (27.0-35.0); MCHC 34.3 g/dL (32.0-36.0); MCV 91.7 fL (80-100); Monocytes % 4.6 % (3.3-12.3); Nucleated Red Blood Cells % 0.1 % (0-0); Platelets 224 thou/uL (152-406); RBC Red Blood Cell Count 4.77 M/uL (3.86-4.86); Red Cell Distribution Width 14.1 % (12.1-15.2)
--- NOTE | 2024-12-18 10:28 | RAD REPORT ---
Procedure: Chest Single View HISTORY: Central line placement. Intubation. COMPARISON: December 09, 2024 FINDINGS: Patchy moderate opacities mid and lower right lung. No significant pleural effusion noted. The heart is normal size. Central venous catheter with its tip in the SVC. No pneumothorax Endotracheal tube 1.5 cm from the timothy. IMPRESSION: Moderate patchy opacities right lung may represent aspiration pneumonitis or pneumonia.
[2024-12-18 10:30] LABS: PT Prothrombin Time 11.3 SECONDS (9.4-12.5); PTT, Activated Partial Thromb 21.1 SECONDS (24.3-36.9); Protime INR 1.08
[2024-12-18 10:33] LABS: ALT/SGPT 47 U/L (13-56); AST/SGOT 50 U/L (15-37); Albumin 2.7 g/dL (3.4-5.0); Alkaline Phosphatase 44 U/L (45-117); Anion Gap 9.6 mEq/L (5.0-15.0); BUN Blood Urea Nitrogen 7 mg/dL (7-18); Bicarbonate 26 mEq/L (21-32); Bilirubin Total 0.4 mg/dL (0.2-1.0); Globulin 2.7 g/dL (2.3-3.5); Glomerular Filtration Rate 118 ml/min (=/>90); Glucose Level 121 mg/dL (74-106); Potassium 3.6 mEq/L (3.5-5.1); Protein, Total 5.4 g/dL (6.4-8.2); Sodium Level 144 mEq/L (136-145)
[2024-12-18 10:37] LABS: Bilirubin Direct < 0.2 mg/dL (0-0.2); Bilirubin Indirect, Calculated 0.2 mg/dL (0.2-0.8)
[2024-12-18] MEDS ORDERED: DIAZEPAM 10 MG/2 ML INJ SYRINGE ONE (10:38)
[2024-12-18] MEDS ORDERED: ACTIVATED CHARCOAL 50 GM/240 ML ONE (10:39)
--- NOTE | 2024-12-18 10:48 | EDPHYS ---
Physician Documentation [facility] Name: Avi Scanlon Age: 29 yrs Sex: Female : 1995 Arrival Date: 12/18/2024 Time: 09:06 Bed 4 Private MD: ED Physician Selwyn Lopez HPI: 12/18 09:11 This 29 yrs old Female presents to ER via EMS with complaints of Respiratory ec2 Distress. 09:11 Patient arrives today after suspected overdose. Last seen last night, had made suicidal ec2 text messages to family members earlier this morning and was found unresponsive today. EMS intubated on scene with paralytic. Patient was found next to a bottle of prednisone. Patient had prescribed fluoxetine 40 mg x 60, phentermine 37.5 mg x 30, propranolol 10 mg x 120 tablets, cefdinir 300 mg x 20, prednisone 20 mg times X 10, promethazine 120 mL. 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 - Infectious Disease History:: Denies. - Social history:: Smoking status: unknown. ROS: 09:15 Constitutional: as per hpi ec2 Exam: 09:15 Constitutional: GEN: NAD, eyes, fixed and dilated pupils bilaterally Head: atraumatic ec2 Ears: External ears are normal. CV: regular rate, present breath sounds bilaterally, soft, nontender LUNGS: no respiratory distress ABD: non-distended SKIN: no evidence of rashes no evidence of self-harm MSK: no evidence of trauma Vital Signs: 09:08 BP 84 / 59; Pulse 94; Resp 15; Temp 98; Pulse Ox 99% ; Weight 73 kg; bp 09:33 BP 91 / 66; Pulse 91; Resp 14; Pulse Ox 100% on ETT vent; ph 10:17 BP 103 / 76; Pulse 96; Resp 17; Pulse Ox 100% on ETT vent; ph 11:46 BP 106 / 70; Pulse 91; Resp 19; Temp 101.7; Pulse Ox 100% ; bp 12:37 BP 108 / 69; Pulse 95; Resp 20; Temp 101.5; Pulse Ox 100% ; bp Procedures: 10:04 Central Line: the site was prepped with Betadine, in sterile fashion, a triple lumen ec2 catheter was inserted, in the left in 1 attempts. placement was verified, by CXR, by blood return, the site was dressed with Tegaderm, the patient tolerated the procedure, well. MDM: 09:10 Medical Screening Exam initiated ec2 09:15 Data reviewed: vital signs, nurses notes. ED course: Patient arrives today ec2 unresponsive. Examination is revealing for intubated individual with bilateral dilated pupils. Will obtain a toxic workup. EKG obtained, independently reviewed and interpreted by me, shows normal sinus rhythm, rate of 94, no acute ST segment elevations, intervals are nonactionable, no QTc prolongation identified. Patient has not bradycardic at this time, does not appear to be syndromic for beta-catrina overdose. Patient without any QTc prolongation indicate SSRI toxicity.. 10:04 ED course: Patient with hypotensive blood pressures, placed in central to line left IJ ec2 without issue. 10:21 ED course: CBC nonactionable, UA is nonactionable, drug screen is positive for PCP ec2 methamphetamine, ABG shows acidosis, testing negative. Updated family regarding guarded prognosis. They relayed that she had made suicidal statements to family member, all pill bottles were found next to patient.. 10:27 ED course: Last known well of 6:40 AM. ec2 10:42 ED course: Tylenol level of 5.5. Metabolic profile is reassuring. Ethanol level at 129. ec2 LFTs are nonactionable. Chest x-ray shows possible pneumonitis/pneumonia, will empirically give antibiotics as well.. 10:46 ED course: Due to lack of capacity to care for ICU patients will transfer patient to ec2 ICU capable facility.. 11:53 ED course: On reassessment patient with some movements noted. Patient placed on ec2 propofol.. 13:04 ED course: I discussed case with ICU over at [facility] who agrees accept ec2 patient for transfer. Patient on my reassessment noted to have more activity and appropriately sedated with propofol. Updated family regarding guarded prognosis. Patient appropriate for transfer in stable but critical condition.. 12/18 09:11 Order name: Acetaminophen; Complete Time: 10:41 ec2 12/18 09:11 Order name: Basic Metabolic Panel; Complete Time: 10:41 ec2 12/18 09:11 Order name: CBC with Diff; Complete Time: 10:19 12/18 09:11 Order name: ETOH Level; Complete Time: 10:12/18 09:11 Order name: Hepatic Function; Complete Time: :41 12/18 09:11 Order name: PT-INR; Complete Time: 10:41 12/18 09:11 Order name: Test, Urine; Complete Time: 10:12/18 09:11 Order name: Ptt, Activated; Complete Time: 10:12/18 09:11 Order name: Salicylate; Complete Time: 10:45 12/18 09:11 Order name: Urinalysis w/ reflexes; Complete Time: 10:12/18 09:11 Order name: Urine Drug Screen; Complete Time: 10:12/18 09:20 Order name: ABG; Complete Time: 10:19 12/18 10:26 Order name: CK; Complete Time: 11:25 12/18 10:05 Order name: CXR XRAY; Complete Time: 10:41 12/18 10:19 Order name: CT Head Brain wo Cont; Complete Time: 11:07 12/18 09:11 Order name: EKG - Nurse/Tech; Complete Time: 09:30 12/18 09:11 Order name: IV Saline Lock; Complete Time: 09:30 12/18 09:11 Order name: Labs collected and sent; Complete Time: 09:30 12/18 09:11 Order name: Suicide Precautions; Complete Time: 09:30 12/18 09:11 Order name: Suicide Screening ([place]); Complete Time: 10:15 12/18 09:11 Order name: Licea; Complete Time: 09:52 12/18 09:37 Order name: Labs - recollect needed: recollect all tubes; Complete Time: 10:15 bd 12/18 10:26 Order name: Ice pack; Complete Time: 10:57 ec12/18 10:26 Order name: Misc. Order; Complete Time: 11:16 ec2 Administered Medications: 09:52 Drug: NS 0.9% IV 2000 ml IV at 2000 ml once; to be given as a bolus over 60 minutes bp Route: IV; Rate: 2000 ml; Site: left jugular; 12:43 Follow up: IV Status: Completed infusion bp 10:35 Drug: Diazepam IVP 10 mg IVP once Route: IVP; Site: left jugular; bp 12:42 Follow up: Response: No adverse reaction bp 10:42 CANCELLED (Physician Discretion): rocephin1 grams IV at calculated rate once; Given ec2 slow IV push per pharmacy instructions 11:10 Drug: Actidose-Sorbitol PO Suspension 100 grams PO once Route: PO; bp 12:42 Follow up: Response: No adverse reaction bp 11:37 Drug: Ampicillin-Sulbactam Sodium IVPB 3 grams IVPB once over 30 mins; (mix in 100 mL bp NS) Route: IVPB; Infused Over: 30 mins; Site: left jugular; 12:42 Follow up: IV Status: Completed infusion bp 11:45 Drug: Propofol IV 5 mcg/kg/min IV at calculated rate See Administration Instructions; bp Standard concentration 1000 mg / 100 mL; Recommended max rate 50 mcg/kg/min; Titrate 5 mcg/kg/min every 5 minutes to achieve goal (see titration policy); Goal parameter RASS score 0 to -2 Route: IV; Rate: calculated rate; Site: left jugular; 12:42 Follow up: IV Status: Infusion continued upon transfer bp Disposition Summary: 12/18/24 10:47 Transfer Ordered Notes: Transfer Location: Other Acute Care Facility ec2 Reason: Higher level of care ec2 Condition: Serious ec2 Problem: an acute exacerbation ec2 Symptoms: have improved ec2 Accepting Physician: transferring doc(12/18/24 13:08) ph Diagnosis - Acute respiratory failure ec2 - Polysubstance Drug Overdose ec2 Forms: - Medication Reconciliation Form ec2 - SBAR form ec2 Critical care time excluding procedures: 10:46 Critical care time: Bedside Care: 30 minutes, Consultation: 10 minutes, Family ec2 Intervention: 10 minutes. Total time: 50 minutes Signatures: Dispatcher [employer] Leda Bryson Patricia, RN RN ph Facundo Mane RN RN Selwyn Starkey MD MD ec2 Corrections: (The following items were deleted from the chart) 09:11 09:11 ACETAMINOPHEN+C.LAB.BRZ ordered. EDMS EDMS 09:11 09:11 BASIC METABOLIC PANEL+C.LAB.BRZ ordered. EDMS EDMS 09:11 09:11 CBC+H.LAB.BRZ ordered. EDMS EDMS 09:11 09:11 ETHANOL+C.LAB.BRZ ordered. EDMS EDMS 09:11 09:11 HEPATIC FUNCTION+C.LAB.BRZ ordered. EDMS EDMS 09:11 09:11 PROTIME (+INR)+COAG.LAB.BRZ ordered. EDMS EDMS 09: 09:11 Test, Urine+UC.LAB.BRZ ordered. EDMS EDMS 09:11 09:11 PTT, ACTIVATED+COAG.LAB.BRZ ordered. EDMS EDMS 09:11 09:11 SALICYLATE+C.LAB.BRZ ordered. EDMS EDMS 09: 09:11 Urinalysis+U.LAB.BRZ ordered. EDMS EDMS 09:11 09:11 URINE DRUG SCREEN+UC.LAB.BRZ ordered. EDMS EDMS 10:42 10:41 Rocephin IV 1 grams IV at calculated rate once; Given slow IV push per pharmacy ec2 instructions ordered. ec2 13:08 10:47 transferring doc ec2 ph
--- NOTE | 2024-12-18 10:48 | ER ---
Nurse's Notes [facility] Name: Avi Scanlon Age: 29 yrs Sex: Female : 1995 Arrival Date: 12/18/2024 Time: 09:06 Bed 4 Private MD: Diagnosis: Acute respiratory failure;Polysubstance Drug Overdose Presentation: 12/18 09:08 Chief complaint: EMS states: FOUND DOWN BY FAMILY, AGONAL RESP, SUICIDAL IDEATION VIA bp TEXT AT 0600, MX EMPTY PILL BOTTLES. Coronavirus screen: At this time, the client does not indicate any symptoms associated with coronavirus-19. Ebola Screen: No symptoms or risks identified at this time. Initial Sepsis Screen: Does the patient meet any 2 criteria? No. Patient's initial sepsis screen is negative. Does the patient have a suspected source of infection? No. Patient's initial sepsis screen is negative. Risk Assessment: Do you want to hurt yourself or someone else? Unable to obtain Other: PRESUMED. Onset of symptoms is unknown. Care prior to arrival: Oral intubation, Medication(s) given: 100 MG ALAYNA IV initiated. 20 GA, in the left antecubital area. 09:08 Method Of Arrival: EMS: [facility] bp 09:08 Acuity: JUAN 2 bp Triage Assessment: 09:11 General: Appears distressed, Behavior is unresponsive. Pain: Unable to use pain scale. bp Patient is intubated. EENT: No deficits noted. Neuro: Level of Consciousness is unresponsive, Oriented to none. Cardiovascular: Rhythm is sinus rhythm. Respiratory: Reports AGONAL Onset: The symptoms/episode began/occurred at an unknown time. the patient has severe shortness of breath. GI: No signs and/or symptoms were reported involving the gastrointestinal system. : No signs and/or symptoms were reported regarding the genitourinary system. Derm: No deficits noted. Musculoskeletal: No deficits noted. Injury Description: NO OBVIOUS SIGNS OF TRAUMA ON INSPECTION. 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 - Infectious Disease History:: Denies. - Social history:: Smoking status: unknown. Screenin:13 [facility] ED Fall Risk Assessment (Adult) History of falling in the last 3 months, bp including since admission No falls in past 3 months (0 pts) Confusion or Disorientation Yes (5 pts) Intoxicated or Sedated Yes (3 pts) Impaired Gait No (0 pts) Mobility Assist Device Used No (0 pt) Altered Elimination No (0 pt) Score/Fall Risk Level 3 or more points = High Risk Oriented to surroundings. Abuse screen: Denies threats or abuse. Denies injuries from another. Nutritional screening: No deficits noted. Tuberculosis screening: No symptoms or risk factors identified. Assessment: 09:13 General: Appears distressed, Behavior is unresponsive. Cardiovascular: No deficits bp noted. Cardiovascular: Rhythm is sinus rhythm. Respiratory: Airway via oral intubation Respiratory effort is weak, Breath sounds are clear bilaterally. 09:32 Respiratory: Ventilator assessment: ET Tube: 7.5 24 \T\ lip. Derm: Skin is pink, warm \T\ ph dry. 11:56 Reassessment: REPORT TO MAYITO DIAMOND AT [facility] FOR RM [id number]. TRANSPORT PENDING. bp 12:37 Reassessment: EMS AT B/S FOR TRANSPORT. bp Vital Signs: 09:08 BP 84 / 59; Pulse 94; Resp 15; Temp 98; Pulse Ox 99% ; Weight 73 kg; bp 09:33 BP 91 / 66; Pulse 91; Resp 14; Pulse Ox 100% on ETT vent; ph 10:17 BP 103 / 76; Pulse 96; Resp 17; Pulse Ox 100% on ETT vent; ph 11:46 BP 106 / 70; Pulse 91; Resp 19; Temp 101.7; Pulse Ox 100% ; bp 12:37 BP 108 / 69; Pulse 95; Resp 20; Temp 101.5; Pulse Ox 100% ; bp Vitals: 09:33 Cardiac Rhythm Assessment Sinus rhythm. ph ED Course: 09:08 Patient arrived in ED. bp 09:10 Selwyn Lopez MD is Attending Physician. ec2 09:11 Triage completed. bp 09:11 Arm band placed on. bp 09:13 Patient has correct armband on for positive identification. bp 09:13 Maintain EMS IV. Dressing intact. Good blood return noted. Site clean \T\ dry. Gauge \T\ bp site: 20 GA LAC. Flushed with 10 mL NS. 09:18 Facundo Mane, DARA is Primary Nurse. bp 09:30 Urine Drug Screen Sent. ph 09:30 Urinalysis w/ reflexes Sent. ph 09:30 Salicylate Sent. ph 09:30 Ptt, Activated Sent. ph 09:30 Test, Urine Sent. ph 09:30 PT-INR Sent. ph 09:30 Hepatic Function Sent. ph 09:30 ETOH Level Sent. ph 09:30 CBC with Diff Sent. ph 09:30 Basic Metabolic Panel Sent. ph 09:30 Acetaminophen Sent. ph 09:31 Initial lab(s) drawn, by me, sent to lab. Urine collected: Licea catheter specimen, ph clear, EKG done, by ED staff, reviewed by Selwyn Lopez MD. Licea cath inserted, using sterile technique, 16 Fr., by kiln cleaner, balloon inflated, to gravity drainage, urine specimen collected. 10:12 Lab(s) recollected, by me, sent to lab. kb4 10:20 CXR XRAY In Process Unspecified. EDMS 10:50 CT Head Brain wo Cont In Process Unspecified. EDMS 11:[address] [facility]. bd 11:41 pt accepted in transfer to [facility] [id number] Skinner admin approval bd given by Lorena Garza rn. 12:30 pt to be transported by [email or web address], lj not transporting pt due to weather bd conditions. 12:38 No provider procedures requiring assistance completed. Patient transferred, IV remains bp in place. Administered Medications: 09:52 Drug: NS 0.9% IV 2000 ml IV at 2000 ml once; to be given as a bolus over 60 minutes bp Route: IV; Rate: 2000 ml; Site: left jugular; 12:43 Follow up: IV Status: Completed infusion bp 10:35 Drug: Diazepam IVP 10 mg IVP once Route: IVP; Site: left jugular; bp 12:42 Follow up: Response: No adverse reaction bp 10:42 CANCELLED (Physician Discretion): rocephin1 grams IV at calculated rate once; Given ec2 slow IV push per pharmacy instructions 11:10 Drug: Actidose-Sorbitol PO Suspension 100 grams PO once Route: PO; bp 12:42 Follow up: Response: No adverse reaction bp 11:37 Drug: Ampicillin-Sulbactam Sodium IVPB 3 grams IVPB once over 30 mins; (mix in 100 mL bp NS) Route: IVPB; Infused Over: 30 mins; Site: left jugular; 12:42 Follow up: IV Status: Completed infusion bp 11:45 Drug: Propofol IV 5 mcg/kg/min IV at calculated rate See Administration Instructions; bp Standard concentration 1000 mg / 100 mL; Recommended max rate 50 mcg/kg/min; Titrate 5 mcg/kg/min every 5 minutes to achieve goal (see titration policy); Goal parameter RASS score 0 to -2 Route: IV; Rate: calculated rate; Site: left jugular; 12:42 Follow up: IV Status: Infusion continued upon transfer bp Medication: 09:13 VIS not applicable for this client. bp Outcome: 10:47 ER care complete, transfer ordered by . ec2 12:41 Transferred by [facility] to [facility], Transfer form completed. bp 12:41 Condition: stable 12:41 Instructed on the need for transfer, 13:08 Patient left the ED. ph Signatures: Dispatcher [employer] EDLeda Bardales Patricia, RN RN ph Facundo Mane RN RN bp Selwyn Lopez MD MD ec2 Karyn Devries kb4 Corrections: (The following items were deleted from the chart) 11:39 09:08 BP 84 / 59; Pulse 94bpm; Resp 15bpm; Pulse Ox 99%; Temp 98F; bp bp
--- NOTE | 2024-12-18 11:03 | RAD REPORT ---
EXAM: CT brain without contrast HISTORY: Unresponsive COMPARISON: None TECHNIQUE: Multiple contiguous axial images were obtained and a CT of the brain without contrast.. Sagittal and coronal reconstruction performed. Automated exposure control, adjustment of the mA and/or kV according to patient size, and/or iterative reconstruction. Unless otherwise specified, incidental f indings do not require dedicated imaging follow-up FINDINGS: An intracranial bleed is not seen Ventricles are normal caliber No extra-axial fluid collection noted No significant hypodensity within the brain No fluid within the visualized sinuses or mastoids noted. IMPRESSION: No acute intracranial abnormality noted. If the patient continues to have symptoms to suggest an acute intracranial abnormality then MRI of th e brain would be recommended.
[2024-12-18] MEDS ORDERED: NA CHLORIDE 0.9% 100 ML ONE (11:25)
[2024-12-18] MEDS ORDERED: AMPICILLIN/SULBACTAM 3GM/VIAL ONE (11:25)
[2024-12-18] MEDS ORDERED: propofoL 1,000 MG/100 ML VIAL IV ONE (11:40)
[2024-12-18 13:46] VITALS: O2SAT 100
[2024-12-18 13:50] VITALS: BP 108/69; TEMP 101.5
== END 2024-12-18 13:08 ==
LOC: ER 09:06
DX: J96.00 Acute respiratory failure, unspecified whether with hypoxia or hypercapnia (principal); T50.991A Poisoning by other drugs, medicaments and biological substances, accidental (unintentional), initial encounter
CPT/HCPCS: 36415; 36556; 36600; 51702; 70450; 71045; 80048; 80076; 80143; 80179; 80307; 81001; 81025; 82077; 82550; 82805; 85025; 85610; 85730; 94002; 96361; 96365; 96375; 99291; 99292; J0295; J2704; J3360; J7030